=== PATIENT | male | born 1930 | race Caucasian/White ===

== ENCOUNTER 2016-09-27 13:09 | Emergency (ER) | payer MEDICARE, BC ==
[~2016-09-27 13:09] MED LIST: ASA325 MG PO; CARDIZEM CD180 MG PO; CIPRO DPS500 MG PO; GLUCOPHAGE-DPS500 MG PO; MAXZIDE-25 DPS1 TAB PO
--- NOTE | 2016-09-28 19:43 | ER ---
ADMIT: 09/27/2016 RM/LOC: ER [facility] MR#: [id number] [address] [id number] NADYA HALEY [address] [place] [address] Emergency Room Report SEX: M AGE: 85 : 1930 DATE: 09/27/2016 TIME: 1309 hours. Please refer to my T-sheet for complete H and P. HISTORY OF PRESENT ILLNESS: Briefly, the patient is an 85-year-old, who has a known history of severe spinal stenosis, nonambulatory. He has a chronic Osorio. He also has a history of diabetes. His daughter takes care of him. They noticed this morning that his Osorio would not drain. He says he is in no discomfort, maybe a little bit of pressure in his suprapubic. He has not had any fevers. No vomiting. No other complaints. He was on Bactrim and had a rash, but they stopped that and the rash seems to be getting better. PHYSICAL EXAMINATION: VITAL SIGNS: Here, his vital signs are all stable. He is afebrile. HEENT: Grossly normal. ABDOMEN: Soft, mildly full in the suprapubic. Osorio not draining. Otherwise, he is at his baseline. EMERGENCY DEPARTMENT COURSE: We replaced the Osorio. He had return of almost a liter of urine. He had complete resolution of any symptoms. 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 Goetz. The daughter was in understanding of this and said she would call in 24-48 hours to see if the culture has shown anything. ASSESSMENT: 1. Osorio plug, replaced in the Emergency Department with resolution of symptoms. 2. Rash from the Bactrim that has improved now. PLAN: Stop the Bactrim. Continue care. Call Dr. Goetz's office in 24-48 hours to follow up on the urine culture results. Nilesh Hayward MD/ surya JOB #: [id number] CC: Vikram Bernal MD, Attending Physician Dave Goetz MD, Family Physician
== END 2016-09-27 16:15 | disposition home or self-care (01) ==
LOC: ER 13:09
PROC: 0T2BX0Z Change Drainage Device in Bladder, External Approach (ICD-10-PCS; principal; 2016-09-27)
DX: Z46.6 Encounter for fitting and adjustment of urinary device (principal); R21 Rash and other nonspecific skin eruption; E11.9 Type 2 diabetes mellitus without complications

== ENCOUNTER 2016-10-28 00:07 | Emergency (ER) | payer MEDICARE, BC ==
--- NOTE | 2016-10-28 04:31 | ER ---
ADMIT: 10/28/2016 RM/LOC: ER [facility] MR#: [id number] [id number] [place], [place] [address] NADYA HALEY [address] [place] [address] Emergency Room Report SEX: M AGE: 85 : 1930 DATE: 10/28/2016 HISTORY OF PRESENT ILLNESS: The patient is an 85-year-old male with past medical history of atrial fibrillation, spinal stenosis, stroke, and diabetes, who was brought to the ER by daughter because of blood-tinged mucus in diaper. Daughter noticed the blood-tinged mucus in the diaper today. Per daughter, the patient is at baseline mental status and denies any symptoms. PHYSICAL EXAMINATION: VITAL SIGNS: The patient has stable vitals. HEAD and Neck: Conjunctiva is red. Trachea is midline with normal peripheral pulses. RECTAL: There were no obvious blood at the anus. On the digital rectal exam, there were brown feces without any obvious trace of the blood. There is a Osorio catheter in the penis without any obvious blood coming out of it and the urine bag also contains yellow urine. The patient had no active bleeding on digital rectal exam. The rest of the physical exam is noncontributory. SKIN: There are no skin rashes or any easy bruising. Hemoglobin level was 10.9, which increased from 2016 from range of 9. INR is normal and the rest of the lab is noncontributory. The patient has stable vitals, no active bleeding, can be discharged to home to be followed up with the primary doctor as needed. Vikram Bernal MD/ surya JOB #: [id number] CC: Vikram Bernal MD, Attending Physician Dave Goetz MD, Family Physician
== END 2016-10-28 02:15 | disposition home or self-care (01) ==
LOC: ER 00:07
DX: K62.5 Hemorrhage of anus and rectum (principal); E11.9 Type 2 diabetes mellitus without complications; Z88.1 Allergy status to other antibiotic agents; Z88.8 Allergy status to other drugs, medicaments and biological substances